=== PATIENT | male | born 1965 | race Caucasian/White ===

== ENCOUNTER 2021-05-12 09:57 | Emergency (ER) | payer SELFPAY ==
[2021-05-12] MEDS ORDERED: PEPCID20 MG PO (10:52)
== END 2021-05-12 11:19 | disposition home or self-care (01) ==
LOC: ER1 09:57
DX: K21.9 Gastro-esophageal reflux disease without esophagitis (principal); R10.13 Epigastric pain; F17.210 Nicotine dependence, cigarettes, uncomplicated
CPT/HCPCS: 99283

== ENCOUNTER 2021-08-22 09:31 | Emergency (ER) | payer OTHER ==
[~2021-08-22 09:31] MED LIST: PEPCID20 MG PO
[2021-08-22 10:04] LABS: HEMOGLOBIN 15.1 gm/dl (14.0-17.5); RED BLOOD COUNT 4.63 M/UL (4.20-5.50)
[2021-08-22 10:33] LABS: BUN/CREATININE RATIO 13 (0-10)
== END 2021-08-22 13:54 | disposition home or self-care (01) ==
LOC: ER1 09:31
DX: R07.89 Other chest pain (principal); F17.200 Nicotine dependence, unspecified, uncomplicated
CPT/HCPCS: 71045; 80053; 82550; 82553; 84484; 85025; 93005; 99285